=== PATIENT | female | born 1990 ===

== ENCOUNTER 2018-10-28 17:07 | Outpatient (REF) | payer MEDICAID, SELFPAY ==
--- NOTE | 2018-10-28 16:15 | PAPFT_PTH ---
PATIENT: MARCO ANTONIO ROJAS LOC: [facility] U#:[id number] AGE/SX: 28/F ROOM: RE10/28/[address]: Kavya Gonzalez : 1990 BED: DIS: 10/28/2018 SPEC #: [id number] RECD: 10/29/18 13:13 STATUS: NOAM RECarlene #: [id number] VALERIE: 10/28/18 16:[address]: Kavya Gonzalez DEPT: [facility] Cytology RECD BY: Yuliet Vigil ENTERED: 10/29/18 13:13 SP TYPE: PAPFT OTHR DR: Crys Helton Tissues: 1 - CX/ENDOCX FOR PAP SMEARS Procedures: PAP THIN PREP/[facility] Screening Comments: [id number]
[2018-10-28 21:36] LABS: Anion Gap 5.6 mmol/L (3-11); BUN 11 mg/dL (7-18); CO2 30.4 mmol/L (21.0-32.0); CREATININE 0.76 mg/dL (0.55-1.02); Chloride 104 mmol/L (98-107); Glucose 89 mg/dL (70-100); Sodium 140 mmol/L (136-145)
== END 2018-10-28 17:27 ==
LOC: NCHCN 17:07
PROVIDERS: PCP Nurse Practitioner Family; Visit Provider Registered Nurse
DX: Z12.4 Encounter for screening for malignant neoplasm of cervix (principal); R00.2 Palpitations
CPT/HCPCS: 80048; 88142